=== PATIENT | female | born 1995 | race Caucasian/White ===

== ENCOUNTER 2024-04-26 06:13 | Day surgery (SDC) | payer OTHER ==
[2024-04-26] MEDS ORDERED: CEFAZOLIN SODIUM 2 GM/VIAL ONE (06:55)
[2024-04-26] MEDS: Ringers Lactate 1,000 ML IV ONE (07:10)
[2024-04-26] MEDS ORDERED: propofoL 200 MG/20 ML VIAL IV ONE (07:12)
[2024-04-26] MEDS ORDERED: MIDAZOLAM HCL 2 MG/2 ML INJ ONE (07:12)
[2024-04-26] MEDS ORDERED: FENTANYL CITR 100 MCG/2 ML ONE ×2 (07:12→08:40)
[2024-04-26] MEDS ORDERED: ROCURONIUM 50 MG/5 ML VIAL IV ONE (07:13)
[2024-04-26] MEDS ORDERED: LIDOCAINE 2% MPF 5 ML VIAL ONE (07:13)
[2024-04-26 07:20] LABS: Absolute Eosinophils 0.1 K/uL (0-0.5); Absolute Lymphocytes (CBC) 2.3 K/uL (0.7-4.9); Absolute Monocytes 0.5 K/uL (0.1-1.3); Absolute Neutrophil 4.1 K/uL (1.8-8.0); Basophils % 0.7 % (0-1.3); Eosinophils % 1.9 % (0-4.4); Hematocrit 40.4 % (36.0-45.0); Hemoglobin 13.1 g/dL (12.0-15.0); Lymphocytes % 32.5 % (15.3-44.8); MCH 27.5 pg (27.0-35.0); MCHC 32.5 g/dL (32.0-36.0); MCV 84.6 fL (80-100); MPV 7.4 fL (7.6-11.3); Monocytes % 6.6 % (3.3-12.3); Neutrophils % 58.3 % (41.7-73.7); Nucleated Red Blood Cells % 0.2 % (0-0); Platelets 344 thou/uL (152-406); RBC Red Blood Cell Count 4.77 M/uL (3.86-4.86); Red Cell Distribution Width 13.7 % (12.1-15.2)
[2024-04-26] MEDS: SCOPOLAMINE HYDROBROMIDE PATCH TD ONE (07:30)
[2024-04-26 07:31] LABS: Anion Gap 8.9 mEq/L (5.0-15.0); Potassium 3.9 mEq/L (3.5-5.1)
[2024-04-26] MEDS: CEFAZOLIN SODIUM 1 GM/VIAL ONE (08:30)
[2024-04-26] MEDS ORDERED: dexAMETHasone 4 MG/ML VIAL ONE (08:41)
[2024-04-26] MEDS ORDERED: KETOROLAC 30 MG/ML INJ ONE (08:41)
[2024-04-26] MEDS ORDERED: ONDANSETRON 4 MG/2 ML VIAL ONE (08:41)
[2024-04-26] MEDS ORDERED: NEOSTIGMINE 1 MG/ML -10 ML VIAL ONE (08:51)
[2024-04-26] MEDS ORDERED: GLYCOPYRROLATE 0.2 MG/ML SYR ONE (08:51)
[2024-04-26 09:22] VITALS: O2SAT 100
--- NOTE | 2024-04-26 09:59 | P.BOP ---
Preoperative diagnosis: umbilical hernia with necrotic skin Postoperative diagnosis: same Primary procedure: Open repair of umbilical hernia Estimated blood loss: <10cc Specimen: skin and sac Findings: as above Anesthesia: General Complications: None Transferred to: Recovery Room Condition: Good
[2024-04-26 10:01] VITALS: BP 112/73; TEMP 97
--- NOTE | 2024-04-26 12:22 | OP ---
Date of Procedure: 04/26/2024 Surgeon: Jose Ricardo MD Preoperative Diagnosis: Umbilical hernia with necrotic skin. Postoperative Diagnosis: Umbilical hernia with necrotic skin. Procedure: Open repair of umbilical hernia. Estimated Blood Loss: Less than 10 cc. Specimen: Skin of the hernia, sized about 2 cm. Anesthesia: General plus local. Complications: None. Indications: This is a case of a 28-year-old person with an umbilical hernia. The skin on top of th e hernia is necrotic. Etiology of that is unknown. She wants that repaired. I have to mention this Ms. Sepulveda also goes by the name of Suma. Patient fully explained the benefits, alternatives, and risks of an open repair of umbilical hernia, which include, but not limited to, infection, bleeding, damage to adjacent structures, anesthesia complication, recurrence, MO, and even . She also un derstands this may not relieve any symptoms. She might need more than one surgical intervention. Sh aleisha understood, signed a consent. Description Of Procedure: The area of the skin on top of the hernia, it looks necrotic, for some crystal son also erythematous. She has been applying Bactroban to that region. An incision was made to jarrell ve that lesion. It looked like a little lump in that region. Incision was made including the skin r emoved out of that area and then got access to the hernia. Fascial edges were clean. Hernia sac was removed. Then, we proceeded to close the fascia with #1 Prolene in a [id number] fashion. Area was irrigated, and then we closed with 3-0 chromic and fransisco. Sponge counts and instrument counts were correct. Patient tolerated the procedure well. Patient sent to recovery room in stable condition. KRISTEN/LANA Voice ID: [id number] Report ID: [id number]
--- NOTE | 2024-04-26 12:28 | DS ---
Date of Discharge: 04/26/2024 Condition: Stable. Disposition: Home. Diagnosis: Umbilical hernia. Procedure: Open repair of umbilical hernia. Plan: Follow up in my office in 1 week. Call for appointment at [phone]. Keep area dry for 48 [address] rs, then after that, apply mupirocin and dry gauze over that region. AIDA Voice ID: [id number] Report ID: [id number]
== END 2024-04-26 10:50 | disposition home or self-care (01) ==
LOC: OR 06:13
PROVIDERS: ATTEND Surgery
PROC: 0WQF0ZZ Repair Abdominal Wall, Open Approach (ICD-10-PCS; principal; 2024-04-26 08:00)
DX: K42.1 Umbilical hernia with gangrene (principal); N80.8 Other endometriosis
CPT/HCPCS: 85025; 80048; 36415; 81025; 88302; 49591; J2704; J1100; J2710; J2001; J2250; J3010 ×2; J2405; J7120; J0690; 88305